=== PATIENT | male | born 1990 | race Two or more races ===

== ENCOUNTER 2017-04-01 19:54 | Observation (INO) | payer OTHER ==
[2017-04-01] MEDS ORDERED: ACETAMINOPHEN 325 MG TAB PO PRN (20:15)
[2017-04-01] MEDS ORDERED: NALOXONE HCL 0.4 MG/ML AMP IV PUSH PRN (20:15)
[2017-04-01] MEDS ORDERED: SODIUM CHLORIDE 0.9% FLUSH 10 ML FLUSH IV FLUSH PRN (20:15)
[2017-04-01] MEDS ORDERED: cefTRIAXone INJ 2,000 MG in SODIUM CHLORIDE 0.9% INJ 100 ML IV SCH (20:15)
[2017-04-01] MEDS ORDERED: ONDANSETRON HCL 4 MG/2 ML VIAL IVP PRN (20:15)
[2017-04-01 22:12] VITALS: BP 143/63; PULSE 73; RESP 16; TEMP 97.4; O2SAT 97
[2017-04-01] MEDS: SODIUM CHLORIDE 0.9% FLUSH 10 ML FLUSH IV FLUSH SCH (22:50)
[2017-04-01] MEDS: SODIUM CHLOR 0.9% 1000 ML INJ 1,000 ML IV SCH (22:51)
[2017-04-01] MEDS ORDERED: LORazepam 0.5 MG TAB PO ONE (23:45)
[2017-04-01] MEDS ORDERED: KETOROLAC TROMETHAMINE 30 MG/ML (IVP) VIAL IV PUSH ONE (23:45)
[2017-04-02] MEDS ORDERED: cefTRIAXone INJ 2,000 MG in SODIUM CHLORIDE 0.9% INJ 100 ML IV SCH ×2
[2017-04-02 07:36] LABS: AUTOMATED NEUTROPHIL # 8.2 TH/MM3 (1.8-7.7); BASOPHIL % 0.3 % (0.0-2.0); EOSINOPHIL # 0.1 TH/MM3 (0-0.4); EOSINOPHIL % 0.5 % (0.0-4.0); HEMATOCRIT 37.3 % (39.0-51.0); HEMOGLOBIN 12.2 GM/DL (13.0-17.0); LYMPH % 13.2 % (9.0-44.0); LYMPHOCYTE # 1.4 TH/MM3 (1.0-4.8); MEAN CELL VOLUME 84.3 FL (80.0-100.0); MEAN CORPUSCULAR HEMOGLOBIN 27.6 PG (27.0-34.0); MEAN CORPUSCULAR HGB CONC 32.8 % (32.0-36.0); MEAN PLATELET VOLUME 7.1 FL (7.0-11.0); MONO % 9.7 % (0.0-8.0); NEUT % 76.3 % (16.0-70.0); PLATELET COUNT 277 TH/MM3 (150-450); RED BLOOD COUNT 4.43 MIL/MM3 (4.50-5.90); RED CELL DISTRIBUTION WIDTH 14.8 % (11.6-17.2); WHITE BLOOD COUNT 10.8 TH/MM3 (4.0-11.0)
[2017-04-02 07:52] LABS: CALCIUM 8.8 MG/DL (8.5-10.1)
[2017-04-02 07:53] LABS: BICARBONATE 27.3 MEQ/L (21.0-32.0)
[2017-04-02 07:56] LABS: CREATININE 1.3 MG/DL (0.60-1.30)
[2017-04-02 08:00] VITALS: BP 153/84; PULSE 119; RESP 15; TEMP 97; O2SAT 97
--- NOTE | 2017-04-02 08:51 | HHI.HP ---
[facility]Staff Admission Diagnosis Diagnoses: Chief Complaint: fever Travel History International Travel<30 Days: No Contact w/Intl Traveler <30 Da: No History of Present Illness This is a 26 y/o M with a PMhx of bladder reconstruction with self catheterization who p/w fevers. He is visiting his grandmother and stated that he have subjective fevers this week so went to the emergency department in [place]. He denies any abdominal pain, nausea, vomiting. Patient is not able to urinate he self cath. Patient stated that when he has fevers he usually has a UTI. Patient had reconstruction the bladder with self-catheterization about one year ago. He stated that he has been reusing his calth due to cost. Because of this he been having about 3 UTIs a month. He stated that [employer] works for the UTI. Patient was transferred here to [place] for possible sepsis. Patient stated that he got new insurance this month and will only use his catheter once as directed. Since admission patient has been afebrile. He has no complaints. Feels like he is back to his baseline. All other review of system reviewed and negative. Past Family Social History Past Medical History Self-catheterization Anxiety Congenital bladder abnormality Past Surgical History Bladder reconstruction with self-catheterization Reported Medications none Allergies: Coded Allergies: ciprofloxacin (Verified Allergy, Unknown, 04/01/17) Active Ordered Medications Current Medications Sodium Chloride 1,000 ml @ 100 mls/hr Q10H IV Last administered on 04/01/17at 22:51; Start 04/01/17 at 20:12 Sodium Chloride (NS Flush) 2 ml UNSCH PRN IV FLUSH FLUSH AFTER USING IV ACCESS Last administered on 04/02/17at 00:28; Start 04/01/17 at 20:15 Sodium Chloride (NS Flush) 2 ml BID IV FLUSH Last administered on 04/01/17at 22: 50; Start 04/01/17 at 21:00 Acetaminophen (Tylenol) 650 mg Q4H PRN PO TEMP > 100.4; Start 04/01/17 at 20:15 Ondansetron HCl (Zofran Inj) 4 mg Q6H PRN IVP NAUSEA OR VOMITING; Start at 20:15 Naloxone HCl (Narcan Inj) 0.4 mg UNSCH PRN IV PUSH SEE LABEL COMMENTS; Start at 20:15 Ceftriaxone Sodium 2000 mg/ Sodium Chloride 100 ml @ 200 mls/hr Q24H IV ; Start 04/01/17 at 20:15; Stop 04/01/17 at 20:21; Status DC Ceftriaxone Sodium 2000 mg/ Sodium Chloride 100 ml @ 200 mls/hr Q24H IV Last administered on 04/02/17at 00:56; Start 04/02/17 at 00:00 Ketorolac Tromethamine (Toradol Inj) 30 mg ONCE ONCE IV PUSH Last administered on 04/02/17at 00:28; Start 04/01/17 at 23:45; Stop 04/01/17 at 23:46 ; Status DC Lorazepam (Ativan) 0.5 mg ONCE ONCE PO Last administered on 04/02/17at 00:28; Start 04/01/17 at 23:45; Stop 04/01/17 at 23:46; Status DC Family History Grandmother has history of heart disease. Otherwise no family history. Social History Denies any alcohol, tobacco, illicit drug use. Physical Exam Vital Signs Vital Signs Date Time Temp Pulse Resp B/P (MAP) Pulse Ox O2 Delivery O2 Flow Rate FiO2 04/02/17 08:00 97.0 119 15 153/84 (107) 97 04/01/17 22:12 97.4 73 16 143/63 (89) 97 Physical Exam GENERAL: This is a well-nourished, well-developed patient, in no apparent distress. SKIN: No rashes, ecchymoses or lesions. Cool and dry. HEAD: Atraumatic. Normocephalic. No temporal or scalp tenderness. EYES: Pupils equal round and reactive. Extraocular motions intact. No scleral icterus. No injection or drainage. ENT: Nose without bleeding, purulent drainage or septal hematoma. Throat without erythema, tonsillar hypertrophy or exudate. Uvula midline. Airway patent. NECK: Trachea midline. No JVD or lymphadenopathy. Supple, nontender, no meningeal signs. CARDIOVASCULAR: Regular rate and rhythm without murmurs, gallops, or rubs. RESPIRATORY: Clear to auscultation. Breath sounds equal bilaterally. No wheezes , rales, or rhonchi. GASTROINTESTINAL: Abdomen soft, non-tender, nondistended. No hepato-splenomegaly , or palpable masses. No guarding. Open wound for self-catheterization shows no erythema or discharge. Negative peritoneal signs. MUSCULOSKELETAL: Extremities without clubbing, cyanosis, or edema. No joint tenderness, effusion, or edema noted. No calf tenderness. Negative Homans sign bilaterally. NEUROLOGICAL: Awake and alert. Cranial nerves II through XII intact. Motor and sensory grossly within normal limits. Five out of 5 muscle strength in all muscle groups. Normal speech. Laboratory Laboratory Tests Test 04/02/17 07:30 White Blood Count 10.8 Red Blood Count 4.43 Hemoglobin 12.2 Hematocrit 37.3 Mean Corpuscular Volume 84.3 Mean Corpuscular Hemoglobin 27.6 Mean Corpuscular Hemoglobin Concent 32.8 Red Cell Distribution Width 14.8 Platelet Count 277 Mean Platelet Volume 7.1 Neutrophils (%) (Auto) 76.3 Lymphocytes (%) (Auto) 13.2 Monocytes (%) (Auto) 9.7 Eosinophils (%) (Auto) 0.5 Basophils (%) (Auto) 0.3 Neutrophils # (Auto) 8.2 Lymphocytes # (Auto) 1.4 Monocytes # (Auto) 1.0 Eosinophils # (Auto) 0.1 Basophils # (Auto) 0.0 CBC Comment DIFF FINAL Differential Comment Blood Urea Nitrogen 10 Creatinine 1.30 Random Glucose 88 Calcium Level 8.8 Sodium Level 138 Potassium Level 3.9 Chloride Level 105 Carbon Dioxide Level 27.3 Anion Gap 6 Estimat Glomerular Filtration Rate 67 Result Diagram: 04/02/1730 04/02/17 07 Imaging Chest x-ray negative for any acute etiology. Course Patient transferred from [facility]. Caprini VTE Risk Assessment Caprini VTE Risk Assessment: No/Low Risk (score <= 1) Caprini Risk Assessment Model Point Value = 1 Point Value = 2 Point Value = 3 Point Value = 5 Age 41-60 Minor surgery BMI > 25 kg/m2 Swollen legs Varicose veins or History of unexplained or recurrent spontaneous Oral contraceptives or hormone replacement Sepsis (< 1 month) Serious lung disease, including pneumonia (< 1 month) Abnormal pulmonary function Acute myocardial infarction Congestive heart failure (< 1 month) History of inflammatory bowel disease Medical patient at bed rest Age 61-74 Arthroscopic surgery Major open surgery (> 45 min) Laparoscopic surgery (> 45 min) Malignancy Confined to bed (> 72 hours) Immobilizing plaster cast Central venous access Age >= 75 History of VTE Family history of VTE Factor V Leiden Prothrombin [id number] Lupus anticoagulant Anticardiolipin antibodies Elevated serum homocysteine Heparin-induced thrombocytopenia Other congenital or acquired thrombophilia Stroke (< 1 month) Elective arthroplasty Hip, pelvis, or leg fracture Acute spinal cord injury (< 1 month) Prophylaxis Regimen Total Risk Factor Score Risk Level Prophylaxis Regimen 0-1 Low Early ambulation 2 Moderate Order ONE of the following: *Sequential Compression Device (SCD) *Heparin 5000 units SQ BID 3-4 Higher Order ONE of the following medications: *Heparin 5000 units SQ TID *Enoxaparin/Lovenox 40 mg SQ daily (WT < 150 kg, CrCl > 30 mL/min) *Enoxaparin/Lovenox 30 mg SQ daily (WT < 150 kg, CrCl > 10-29 mL/min) *Enoxaparin/Lovenox 30 mg SQ BID (WT < 150 kg, CrCl > 30 mL/min) AND/OR *Sequential Compression Device (SCD) 5 or more Highest Order ONE of the following medications: *Heparin 5000 units SQ TID (Preferred with Epidurals) *Enoxaparin/Lovenox 40 mg SQ daily (WT < 150 kg, CrCl > 30 mL/min) *Enoxaparin/Lovenox 30 mg SQ daily (WT < 150 kg, CrCl > 10-29 mL/min) *Enoxaparin/Lovenox 30 mg SQ BID (WT < 150 kg, CrCl > 30 mL/min) AND *Sequential Compression Device (SCD) Assessment and Plan Assessment and Plan This is a 26-year-old male with bladder reconstruction and self-catheterization UTI -Unlikely sepsis. Patient does not display any multiorgan failure. Lactic acid 0.9. Leukocytosis resolved quickly most likely secondary to dehydration. Fever due to UTI. Patient back to baseline. Multiple UTIs secondary to reusing catheters. Education given to patient regards to compliance. Patient told cannot reuse catheters which will increase his risks of infection. Patient stated that he understands and that he now has better insurance coverage so is able to use his catheter as directed. UA suggest UTI. Patient currently on Rocephin. Since patient able to tolerate oral intake and is back to baseline will switch him to Bactrim. Patient told to follow-up with PCP in 3 -5 days in regards to hospitalization. He was also told that he can call Hospital in 1-2 days in regards to his urine culture results, she still follow- up with his primary care provider. Pending urine cultures and blood cultures. Self-catheterization, bladder reconstruction -See treatment as above. Multiple UTIs should resolve once patient uses catheters as directed. Anxiety -most likely caused of his intermittent tachycardia. He received benzos last night in patient stated helped his symptoms. Patient stated that he was given medication for this but he stopped medication on his own. Follow-up as outpatient. Discharge in stable condition. Follow-up PCP in 3-5 days. Patient told can call Dr. Massiel Quesada regards to hospital results. Return to the hospital or ED if symptoms worsens. heart healthy diet. Medication Bactrim DS 1 tab by mouth twice a day for 10 days. Code Status full Discussed Condition With patient Massiel Quesada MD Apr 02, 2017 08:51
[2017-04-02] MEDS: SODIUM CHLOR 0.9% 1000 ML INJ 1,000 ML IV SCH (08:54)
[2017-04-02] MEDS: SODIUM CHLORIDE 0.9% FLUSH 10 ML FLUSH IV FLUSH SCH (09:04)
--- NOTE | 2017-04-02 09:05 | HHI.DCPOC ---
Discharge Care Plan Diagnosis: (1) UTI (urinary tract infection) Additional Problems Please do not refused catheters. If symptoms worsen return to emergency department. Goals to Promote Your Health * To prevent worsening of your condition and complications * To maintain your health at the optimal level Directions to Meet Your Goals Take your medications as prescribed Follow your dietary instruction Follow activity as directed Keep your appointments as scheduled Take your immunizations and boosters as scheduled If your symptoms worsen call your PCP, if no PCP go to Urgent Care Center or Emergency Room Smoking is Dangerous to Your Health. Avoid second hand smoke Call the 24-hour hour crisis hotline for domestic abuse at Massiel Quesada MD Apr 02, 2017 09:05
[2017-04-02] MEDS ORDERED: BACT800T5 PO (09:06)
== END 2017-04-02 12:31 | disposition home or self-care (01) ==
LOC: PHEDDLT 21:43 → PH3A 21:53
PROVIDERS: ADMIT Family Medicine; ATTEND Family Medicine
DX: N39.0 Urinary tract infection, site not specified (principal); F41.9 Anxiety disorder, unspecified; R00.0 Tachycardia, unspecified
CPT/HCPCS: 71045; 80048; 80053; 81001; 83605; 83735; 85025; 87040; 87077; 87086; 87186; 87804; 96361; 96365; 96366; 96368; 96375; 99285; G0378; J0692; J0696; J1885; J2060; J2405; J2543; J7030